=== PATIENT | female | born 2000 | race African-American/Black ===

== ENCOUNTER 2022-09-23 01:32 | Emergency (ER) | payer OTHER, SELFPAY ==
[2022-09-23] MEDS ORDERED: Ketamine 50 MG/ML (10ML VIAL) ONE (01:33)
[2022-09-23 02:42] LABS: #Basophils 0.1 thou/uL (0.0-0.2); #Eosinphils 0.1 thou/uL (0.0-0.7); #Lymphocytes 2.5 thou/uL (1.20-3.40); #Monocytes 0.5 thou/uL (0.11-0.59); #Neutrophils 5.1 thou/uL (1.40-6.50); %Basophils 0.9 % (0.0-1.0); %Eosinophils 1.1 % (0.0-10.0); %Lymphocytes 29.9 % (28.0-48.0); %Monocytes 6.5 % (0.0-4.0); %Neutrophils 61.6 % (31.0-61.0); Hemoglobin 13.8 g/dL (12.0-16.0); Mean Corpuscular HGB CONC 34.8 g/dL (32.0-36.0); Mean Corpuscular Hemoglobin 32.5 pg (25.0-35.0); Mean Corpuscular Volume 93.5 fl (78.0-98.0); Mean Platelet Volume 6.8 fL (7.4-10.4); Platelet Count 420 10x3/uL (130-400); RBC Distribution Width 12.1 % (11.5-14.5); Red Blood Cell (RBC) Count 4.23 mill/uL (4.00-5.20); White Blood Cell (WBC) Count 8.3 10x3/uL (4.8-10.8)
[2022-09-23 02:47] LABS: BHCG - Serum Negative (NEGATIVE); Pregs Control Bar Appear? YES (CONTROL BAR)
[2022-09-23 02:48] LABS: Pregs Control Background? CLEAR/WHITE (CLR/WHITE)
[2022-09-23 03:01] LABS: ALT (SGPT) 11 U/L (8-55); AST (SGOT) 20 U/L (5-34); Albumin 4.3 g/dL (3.5-5.0); Alkaline Phosphatase 46 U/L (40-100); Anion Gap 17 mmol/L (10-20); BUN (Urea Nitrogen) 9 mg/dL (7.0-18.7); Bilirubin, Total 0.6 mg/dL (0.2-1.2); Calc. Creatinine Clearance 0 mL/min (70-130); Calcium 9.1 mg/dL (7.8-10.44); Carbon Dioxide 18 mmol/L (22-29); Chloride 106 mmol/L (98-107); Estimated GFR 95; Globulin 4.4 g/dL (2.4-3.5); Glucose 105 mg/dL (70-105); Potassium 3.1 mmol/L (3.5-5.1); Protein, Total 8.7 g/dL (6.0-8.3); Sodium 138 mmol/L (136-145)
[2022-09-23 03:02] LABS: Acetaminophen Less than 10.0 mcg/mL (10.0-30.0); Alcohol 213 mg/dL (Less than 10); Salicylate Less than 8.0 mg/dL (15.0-30.0)
[2022-09-23 03:31] LABS: Bilirubin Negative (Negative); Blood, Urine Negative (Negative); Clarity Clear (Clear); Glucose, Urine (Dipstick) Normal (Negative); Ketone, Urine Negative (Negative); Leukocyte Negative Leu/uL (Negative); Nitrite Negative (Negative); Protein, Urine (Dipstick) Negative (Neg-Trace); Specific Gravity, Urine 1.003 (1.002-1.036); Urobilinogen Normal mg/dL (Less than 2)
[2022-09-23 03:38] LABS: Amphetamine Not Detected (NotDetected); Barbiturates Screen Not Detected (NotDetected); Benzodiazepine Screen Not Detected (NotDetected); Cocaine Metabolite Screen Not Detected (NotDetected); Methadone Not Detected (NotDetected); Methamphetamine Not Detected (NotDetected); Opiate Screen Not Detected (NotDetected); Oxycodone Screen Not Detected (NotDetected); Phencyclidine (PCP) Not Detected (NotDetected); THC/Cannabinoid Screen Not Detected (NotDetected); Tricyclic Screen Not Detected (NotDetected)
== END 2022-09-23 17:55 | disposition home or self-care (01) ==
LOC: ERS 01:32
DX: F10.129 Alcohol abuse with intoxication, unspecified (principal)
CPT/HCPCS: 36415; 80053; 80306; 80307; 81003; 84703; 85025; 96360; 96372

== ENCOUNTER 2023-06-06 02:02 | Emergency (ER) | payer OTHER ==
[2023-06-06] MEDS ORDERED: Ondansetron ODT 4 MG TAB ONE (02:51)
[2023-06-06] MEDS ORDERED: Ketorolac Tromethamine 30 MG/ML VIAL ONE (02:51)
[2023-06-06] MEDS ORDERED: diphenhydrAMINE 50 MG/ML VIAL ONE (05:31)
[2023-06-06] MEDS ORDERED: Metoclopramide HCl 10 MG/2 ML VIAL ONE (05:31)
[2023-06-06] MEDS ORDERED: Ondansetron PF 4 MG/2 ML Vial ONE (06:40)
== END 2023-06-06 07:08 | disposition home or self-care (01) ==
LOC: ERS 02:02
DX: S09.90XA Unspecified injury of head, initial encounter (principal); W07.XXXA Fall from chair, initial encounter
CPT/HCPCS: 70450; 96361; 96365; 96372; 96375; J1200; J1885; J2405; J2765; Q0162